=== PATIENT | female | born 1995 | race Two or more races ===

== ENCOUNTER 2021-05-07 23:55 | Emergency (ER) | payer BC ==
[~2021-05-07] VITALS: Ht 160 cm; Wt 63.5 kg
--- NOTE | 2021-05-08 00:30 | NUR ---
BIBFRIEND. LOWER ABD PAIN X YESTERDAY EVENING. REPORTS DIARRHEA -N/V NO URINARY SYMPTOMS. PATIENT ALERT AND ORIENTED X3. AMBULATORY WITH NON LABORED BREATHING.
--- NOTE | 2021-05-08 00:35 | NUR ---
urine sent to lab
--- NOTE | 2021-05-08 00:49 | NUR ---
BLOOD COLLECTED AND SENT TO LAB
[2021-05-08] MEDS ORDERED: ONDANSETRON HCL/PF 4 MG/2 ML VIAL ONE (00:53)
[2021-05-08] MEDS ORDERED: KETOROLAC TROMETHAMINE INJ 30 MG/ML VIAL ONE (00:53)
[2021-05-08] MEDS ORDERED: ONDANSETRON HCL/PF 4 MG/2 ML VIAL IVP ONE (01:00)
[2021-05-08] MEDS ORDERED: IV NS 0.9% 500 ML BAG IV ONE (01:00)
[2021-05-08] MEDS ORDERED: KETOROLAC TROMETHAMINE INJ 30 MG/ML VIAL IV ONE (01:00)
[2021-05-08 01:08] LABS: BILIRUBIN,URINE NEGATIVE (NEGATIVE); COLOR,URINE YELLOW (YELLOW); LEUKOCYTE ESTERASE ,URINE NEGATIVE (NEGATIVE); NITRITE, URINE NEGATIVE (NEGATIVE); PH,URINE 5.5 (5.0-8.0); PROTEIN,URINE NEGATIVE (NEGATIVE); UGLUCOSE NEGATIVE (NEGATIVE); UROBILINOGEN,URINE 0.2 EU/dL (0.2)
[2021-05-08 01:29] LABS: BASOPHILS # (AUTO) 0.1 K/uL (0.0-0.2); BASOPHILS % (AUTO) 0.7 % (0.0-2.0); EOSINOPHILS % (AUTO) 6.2 % (0.0-6.0); HEMATOCRIT 43 % (33-45); HEMOGLOBIN 14.6 g/dL (11.5-14.8); LYMPHOCYTES # (AUTO) 3.5 K/uL (0.8-4.8); LYMPHOCYTES % (AUTO) 41.5 % (20.0-44.0); MEAN CORPUSCULAR HGB CONC 34 g/dl (31.0-36.0); MEAN CORPUSCULAR VOLUME 86 fL (82-100); MONOCYTES # (AUTO) 0.5 K/uL (0.1-1.30); MONOCYTES % (AUTO) 6.1 % (2.0-12.0); NEUTROPHILS # (AUTO) 3.8 K/uL (1.8-8.9); NEUTROPHILS % (AUTO) 45.5 % (43.0-81.0); PLATELET COUNT (AUTO) 194 K/uL (150-450); WHITE BLOOD COUNT (AUTO) 8.4 K/uL (4.3-11.0)
[2021-05-08 01:36] LABS: ALBUMIN 4.3 g/dL (3.4-5.0); BILIRUBIN,DIRECT 0.1 mg/dL (0.0-0.2); BILIRUBIN,TOTAL 0.4 mg/dL (0.2-1.0); CALCIUM, SERUM 8.7 mg/dL (8.5-10.1); CREATININE 0.8 mg/dL (0.6-1.3); POTASSIUM 3.3 mmol/L (3.5-5.1); TOTAL PROTEIN, SERUM 8.4 g/dL (6.4-8.2)
--- NOTE | 2021-05-08 01:55 | NUR ---
taken to radiology
--- NOTE | 2021-05-08 02:33 | NUR ---
CALLED DAVID TO HAVE IMAGES READ
--- NOTE | 2021-05-08 03:53 | NUR ---
PER DAVID, DR CHEN WILL READ IMAGE NEXT
[2021-05-08] MEDS ORDERED: POLY17PO4 PO (04:02)
[2021-05-08] MEDS ORDERED: DOCU-141 PO (04:02)
--- NOTE | 2021-05-08 04:10 | NUR ---
Patient discharged to home in stable condition. Written and verbal after care instructions given. Patient verbalizes understanding of instruction. IV removed. Catheter intact and site benign. Pressure and 4x4 applied to site. No bleeding noted. Pt ambulatory with a steady gait
[2021-05-08 04:16] VITALS: BP 118/79
== END 2021-05-08 04:10 | disposition home or self-care (01) ==
LOC: ER 05-08 00:03
DX: K59.00 Constipation, unspecified (principal); Z88.0 Allergy status to penicillin; Z79.899 Other long term (current) drug therapy
CPT/HCPCS: 36415; 74176; 80048; 80076; 81003; 83690; 84703; 85025; 96374; 99285; J1885; J7040; J2405